=== PATIENT | female | born 1955 | race Caucasian/White ===

== ENCOUNTER 2018-12-01 15:21 | Emergency (ER) | payer MEDICAID, MEDICARE ==
[~2018-12-01] VITALS: Ht 157.5 cm; Wt 50.0 kg
[2018-12-01 15:22] VITALS: BP 106/74
[2018-12-01] MEDS ORDERED: HYDROcodone/APAP 5/325 TABLET ONE (15:54)
[2018-12-01] MEDS ORDERED: HYDROcodone/APAP 5/325 TABLET PO ONE (16:00)
--- NOTE | 2018-12-01 17:11 | NUR ---
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
== END 2018-12-01 17:13 | disposition home or self-care (01) ==
LOC: ED 17:05
DX: S82.092A Other fracture of left patella, initial encounter for closed fracture (principal); S92.351A Displaced fracture of fifth metatarsal bone, right foot, initial encounter for closed fracture; F17.200 Nicotine dependence, unspecified, uncomplicated; W01.0XXA Fall on same level from slipping, tripping and stumbling without subsequent striking against object, initial encounter; Y93.89 Activity, other specified; Y92.89 Other specified places as the place of occurrence of the external cause; Y99.8 Other external cause status
CPT/HCPCS: 29505; 29515; 99283